=== PATIENT | female | born 1970 ===

== ENCOUNTER 2019-08-09 15:49 | Emergency (ER) | payer OTHER ==
--- NOTE | 2019-08-09 16:21 | ED ---
Abdominal Pain/Female - HPI Summary HPI Summary: Patient complains of epigastric and left upper quadrant pain with associated nausea and vomiting 32 days. Patient states prior history of same once in April, once a week ago. Pain described as constant over the past couple days , occasionally worse with eating, worse with certain foods. Patient admits to decreased by mouth intake over the past couple days and weakness. Denies fever , cough, sore throat, CP, SOB, diarrhea, change in urine, change in BM, vaginal symptoms. Medical history is none. Abdominal surgical history is none. - History of Current Complaint Chief Complaint: EDAbdPain Stated Complaint: ABD PAIN PER Time Seen by Provider: 08/09/19 16:18 Hx Obtained From: Patient Onset/Duration: Sudden Onset, Lasting Hours Timing: Constant Severity Initially: Moderate Severity Currently: Moderate Pain Intensity: 7 Pain Scale Used: 0-10 Numeric Location: Discrete At: LUQ, Epigastric Radiates: No Character: Sharp, Burning Aggravating Factor(s): Food Alleviating Factor(s): Nothing Associated Signs and Symptoms: Positive: Decreased Appetite, Nausea, Vomiting Allergies/Adverse Reactions: Allergies Allergy/AdvReac Type Severity Reaction Status Date / Time No Known Allergies Allergy Verified 08/09/19 15:54 PMH/Surg Hx/FS Hx/Imm Hx Endocrine/Hematology History: Denies: Hx Anticoagulant Therapy Cardiovascular History: Denies: Hx Pacemaker/ICD History: Denies: Hx Dialysis Sensory History: Denies: Hx Eye Injury Opthamlomology History: Denies: Hx Eye Prosthesis EENT History: Denies: Hx Deafness Neurological History: Denies: Hx Dementia Infectious Disease History: No Infectious Disease History: Denies: Traveled Outside the [place] in Last 30 Days - Family History Known Family History: Positive: Non-Contributory - Social History Alcohol Use: Occasionally Hx Substance Use: No Hx Tobacco Use: No Review of Systems Constitutional: Negative Eyes: Negative ENT: Negative Cardiovascular: Negative Respiratory: Negative Positive: Abdominal Pain, Vomiting, Nausea Genitourinary: Negative Musculoskeletal: Negative Skin: Negative Neurological: Negative Psychological: Normal All Other Systems Reviewed And Are Negative: Yes Physical Exam - Summary Physical Exam Summary: Tenderness in the epigastrium. Abdominal exam otherwise unremarkable. Triage Information Reviewed: Yes Vital Signs On Initial Exam: Initial Vitals Temp Pulse Resp BP Pulse Ox 97.7 F 73 19 134/88 100 08/09/19 15:51 01/20/20 15:51 08/09/19 15:51 08/09/19 15:51 08/09/19 15:51 Vital Signs Reviewed: Yes Appearance: Positive: Well-Appearing Skin: Positive: Warm Head/Face: Positive: Normal Head/Face Inspection Eyes: Positive: Normal Neck: Positive: Supple Respiratory/Lung Sounds: Positive: Clear to Auscultation Cardiovascular: Positive: Normal Abdomen Description: Positive: Other: Musculoskeletal: Positive: Normal Neurological: Positive: Normal Psychiatric: Positive: Normal AVPU Assessment: Alert - Melissa Coma Scale Best Eye Response: 4 - Spontaneous Best Motor Response: 6 - Obeys Commands Best Verbal Response: 5 - Oriented Coma Scale Total: 15 Procedures - Sedation Patient Received Moderate/Deep Sedation with Procedure: No Diagnostics - Vital Signs Vital Signs Temp Pulse Resp BP Pulse Ox 08/09/19 15:51 97.7 F 73 19 134/88 100 - Laboratory Result Diagrams: 08/09/19 17:08 08/09/19 17:08 Lab Statement: Any lab studies that have been ordered have been reviewed, and results considered in the medical decision making process. Abdominal Pain Fem Course/Dx - Course Course Of Treatment: Patient complains of epigastric and left upper quadrant pain with associated nausea and vomiting 32 days. Patient states prior history of same once in April, once a week ago. Pain described as constant over the past couple days, occasionally worse with eating, worse with certain foods. Patient admits to decreased by mouth intake over the past couple days and weakness. Denies fever, cough, sore throat, CP, SOB, diarrhea, change in urine, change in BM, vaginal symptoms. Medical history is none. Abdominal surgical history is none. Vital signs within normal limits. WBC 13. Labs otherwise unremarkable. Urine negative. Patient's symptoms improved somewhat with GI cocktail. Rx for Zofran and omeprazole. Follow-up with GI. - Diagnoses Provider Diagnoses: Gastritis Discharge ED - Sign-Out/Discharge Documenting (check all that apply): Patient Departure - Discharge Plan Condition: Stable Disposition: HOME Prescriptions: Omeprazole 20 mg PO DAILY 30 Days #30 capsule. Ondansetron ODT TAB* [Zofran 4 MG Odt TAB*] 4 mg PO Q8H PRN 4 Days #14 tab.odt PRN Reason: Nausea Patient Education Materials: Gastritis (ED) Referrals: Jet Styles MD [Primary Care Provider] - Christiano Beasley DO [Doctor of Osteopathy] - Additional Instructions: Take Zofran as directed for nausea if necessary. Take omeprazole once daily for stomach pain. If symptoms improve continue to take prescription omeprazole from your primary care doctor. If symptoms do not improve follow-up with GI Dr. Souza for further evaluation. If symptoms worsen including fever, increased pain, increased vomiting, return to the ED. - Billing Disposition and Condition Condition: STABLE Disposition: Home
[2019-08-09 17:10] LABS: Urine Appearance Clear; Urine Bilirubin Negative (Negative); Urine Blood 1+ (Negative); Urine Color Yellow; Urine Glucose 1+(50 mg/dL) (Negative); Urine Ketones Negative (Negative); Urine Nitrite Negative (Negative); Urine Protein Negative (Negative); Urine Specific Gravity 1.028 (1.010-1.030); Urine Urobilinogen Negative (Negative)
[2019-08-09 17:11] LABS: Urine Bacteria Absent (Absent); Urine Red Blood Cell 3+(>10/hpf) (Absent); Urine Squamous Epithelial Cell Present (Absent); Urine White Blood Cell Trace(0-5/hpf) (Absent)
[2019-08-09 17:16] LABS: ABS Basophils 0.1 10^3/ul (0-0.2); ABS Lymphocytes 1.2 10^3/ul (1.0-4.8); ABS Monocytes 0.8 10^3/ul (0-0.8); ABS Neutrophils 11.1 10^3/ul (1.5-7.7); Eosinophil % 0.3 %; Hematocrit 42 % (35-47); Hemoglobin 14.2 g/dL (12.0-16.0); Mean Corpuscular HGB Conc 34 g/dL (31-36); Mean Corpuscular Hemoglobin 29 pg (27-31); Mean Corpuscular Volume 86 fL (80-97); Mean Platelet Volume 7.8 fL (7.4-10.4); Platelet Count 205 10^3/uL (150-450); Red Blood Count 4.89 10^6 /uL (3.70-4.87); Red Cell Distribution Width 14 % (10-15); White Blood Count 13.1 10^3/uL (3.5-10.8)
[2019-08-09 17:33] LABS: Albumin 4.3 g/dL (3.2-5.2); Albumin/Globulin Ratio 1.2 (1-3); BUN/Creatinine Ratio 24.2 (8-20); C Reactive Protein 19.43 mg/L (<8.01); Calcium 9.4 mg/dL (8.6-10.3); EGFR African American 115.7 (>60); EGFR Non-African American 95.6 (>60); Globulin 3.5 g/dL (2-4); Potassium 3.6 mmol/L (3.5-5.0); Total Bilirubin 0.4 mg/dL (0.2-1.0); Total Protein 7.8 g/dL (6.4-8.9)
[2019-08-09 17:38] LABS: HCG Pregnancy 0.89 mIU/mL
[2019-08-09] MEDS ORDERED: Lidocaine 2% VISCOUS* 15 ML UDC PO ONE (17:48)
[2019-08-09] MEDS ORDERED: Al Hydrox/Mg Hydrox/Simet LIQ* 30 ML UDC PO ONE (17:48)
[2019-08-09] MEDS ORDERED: Ondansetron ODT TAB* 4 MG PO ONE (18:41)
[2019-08-09] MEDS ORDERED: Pantoprazole TAB * 40 MG TAB PO ONE (18:41)
[2019-08-09 18:56] VITALS: BP 133/76
== END 2019-08-09 18:55 | disposition home or self-care (01) ==
LOC: ED 15:49
DX: K29.70 Gastritis, unspecified, without bleeding (principal); R11.2 Nausea with vomiting, unspecified; Z79.899 Other long term (current) drug therapy
CPT/HCPCS: 36415; 80053; 81003; 81015; 83605; 83690; 84702; 85025; 86140; 87086; 99283; A9270-GY